=== PATIENT | female | born 1980 | race Caucasian/White ===

== ENCOUNTER 2016-11-28 19:13 | Emergency (ER) | payer OTHER ==
[2016-11-28 19:52] LABS: APPEARANCE,URINE CLEAR (CLEAR); COLOR,URINE YELLOW (YELLOW); OCCULT BLOOD,URINE NEGATIVE (NEGATIVE); UROBILINOGEN URINE 0.2 Eu (0.2-1.0)
--- NOTE | 2016-11-28 20:19 | ED Physician Documentation ---
Female Urogenital Problems - HISTORIAN Historian: patient - HPI Stated Complaint: burning with urination Chief Complaint: Female Urogenital Problems Severity: mild Further Comments: yes (Patient has recurrent UTI infections about every 6 months ,) - Vaginal Bleeding Sexual History: active - ROS CONST: none. denies: fever, chills GI/: nausea. denies: vomiting, diarrhea - PAST HX Past History: other (ACL, GERDs) Other History: other (asthma, depreesion HTN,) Surgeries/Procedures: BTL, cholecystectomy Allergies/Adverse Reactions: Allergies Allergy/AdvReac Type Severity Reaction Status Date / Time cephalexin monohydrate Allergy Rash Verified 11/28/16 19:53 [From Keflex] ciprofloxacin [From Cipro] AdvReac Unknown Hallucinati Verified 11/28/16 19:53 ons ciprofloxacin HCl AdvReac Unknown Hallucinati Verified 11/28/16 19:53 [From Cipro] ons aspirin AdvReac Rash Verified 11/28/16 19:53 famotidine [From Pepcid] AdvReac Rash Verified 11/28/16 19:53 nitrofurantoin AdvReac Rash Verified 11/28/16 19:53 [From Macrobid] nitrofurantoin AdvReac Rash Verified 11/28/16 19:53 macrocrystalline [From Macrobid] Penicillins AdvReac Rash Verified 11/28/16 19:53 Sulfa (Sulfonamide AdvReac Rash Verified 11/28/16 19:53 Antibiotics) Home Medications: Ambulatory Orders Medication Instructions Recorded Escitalopram Oxalate [Lexapro] 20 mg PO DAILY 11/28/16 Fentanyl [Fentanyl] 11/28/16 Omeprazole [Prilosec] 20 mg PO DAILY 11/28/16 Potassium Chloride [Klor-Con M20] 20 meq PO BID 11/28/16 Prochlorperazine Maleate 10 mg PO PRN 11/28/16 [Compazine] Sulfamethoxazole/Trimethoprim 1 each PO BID #14 tablet 11/28/16 [Bactrim DS] - SOCIAL HX Smoking History: quit less than 1 year (was 1/2 -1 ppd) Alcohol Use: none Drug Use: none - FAMILY HX Family History: other (DM) - VITAL SIGNS Vital Signs: Vital Signs Temp Pulse Resp BP Pulse Ox 98.3 F 85 16 117/77 100 11/28/16 19:49 11/28/16 19:49 11/28/16 19:49 11/28/16 19:49 11/28/16 19:49 - REVIEWED ASSESSMENTS Nursing Assessment Reviewed: Yes Vitals Reviewed: Yes ED Results Lab/Radiology - Lab Results Lab Results: Lab Results 11/28/16 19:25 Urine Color Yellow (YELLOW) Urine Appearance Clear (CLEAR) Urine pH 7.0 (5.0 - 8.0) Ur Specific [place] 1.020 (1.010-1.030) Urine Protein Negative mg/dL mg/dL (NEGATIVE) Urine Ketones Negative mg/dL mg/dL (NEGATIVE) Urine Occult Blood Negative (NEGATIVE) Urine Nitrite Negative (NEGATIVE) Urine Bilirubin Negative (NEGATIVE) Urine Urobilinogen 0.2 Eu Eu (0.2-1.0) Ur Leukocyte Esterase Trace H (NEGATIVE) Urine Glucose Negative mg/dL mg/dL (NEGATIVE) - Orders Orders: ED Orders Category Date Time Status UA MACRO DIP ONLY Routine Lab 11/28/16 19:25 Completed Female Urogenital Problems - EXAM General Appearance: no acute distress, alert Respiratory: no resp. distress, breath sounds nml. No: wheezes, rales, rhonchi CVS: reg rate & rhythm, heart sounds normal, equal pulses, murmur (grade 1-2/6 systolic) Abdomen: soft, non-tender (obese), no distention, nml bowel sounds, tenderness ( mild duprapubic) Neuro: oriented X3, mood/affect nml, cognition normal Discharge Clincal Impression: Cystitis Additional Instructions: Drink a lot of fluids. Take Bactrim twice a day as directed. Watch for any fever or chills. If you have any further problems to return the the ED or see your primary care provider. Home Medications: Ambulatory Orders Escitalopram Oxalate [Lexapro] 20 mg PO DAILY 11/28/16 Fentanyl [Fentanyl] 11/28/16 Omeprazole [Prilosec] 20 mg PO DAILY 11/28/16 Potassium Chloride [Klor-Con M20] 20 meq PO BID 11/28/16 Prochlorperazine Maleate [Compazine] 10 mg PO PRN 11/28/16 Sulfamethoxazole/Trimethoprim [Bactrim DS] 1 each PO BID #14 tablet 11/28/16 Condition: Stable Disposition: 01 HOME, SELF-CARE Decision to Admit: NO Date of Decison to Admit: 11/28/16 Decision Time: 20:32
[2016-11-28] MEDS ORDERED: SULFAMETHOXAZOLE/TRIMETHOPRIM 1 EACH TABLET PO ONE (20:29)
[2016-11-28] MEDS ORDERED: AZITHROMYCIN 250 MG TABLET PO ONE (20:57)
[2016-11-28 21:16] VITALS: BP 123/93
[2016-11-29] MEDS ORDERED: AZITHROMYCIN 250 MG TABLET PO SCH (09:00)
== END 2016-11-28 21:10 | disposition home or self-care (01) ==
LOC: ED 19:13
DX: N30.90 Cystitis, unspecified without hematuria (principal)
CPT/HCPCS: 81002; 87088; 87186; 99283

== ENCOUNTER 2017-01-23 14:28 | Emergency (ER) | payer OTHER ==
[2017-01-23] MEDS ORDERED: methylPREDNISolone SOD SUCC 125 MG/2 ML VIAL ONE (14:54)
--- NOTE | 2017-01-23 18:38 | ED Physician Documentation ---
Critical Care - HISTORIAN Historian: paramedics - [facility] Stated Complaint: pulmonary/cardiac arrest Chief Complaint: Code Blue Additional Information: 36 y/o white female who stated she could not breathe at home and collapsed. CPR begun imediately. 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) Further Comments: no - INITIAL FINDINGS BY MEDICS Mentation: Unresponsive Respirations: No Respirations Rhythm: asystole - PRE-HOSPITAL TREATMENT Oxygen: other (combitube) CRP/Thumper: Yes Defibrillated X: 1 IV Access: Yes (IO questionable function) IV Fluids: Yes (normal saline questionable amount) How Many Doses of Epinephrine?: 3 Vasopressin Given?: No How Many Doses of Atropine?: 0 Amiodorone Given?: No Lidocaine Given?: No - ROS CONST: no problems EYES/ENT: none CVS/RESP: shortness of breath MS/SKIN/LYMPH: none GI/: denies: abdominal pain, nausea, vomiting blood, black stools, painful urination NEURO/PSYCH: none - PAST HX Lung, Cardiac, DM: other (gerd, leukemia, depression, chronic pain, ) Allergies/Adverse Reactions: Allergies Allergy/AdvReac Type Severity Reaction Status Date / Time cephalexin monohydrate Allergy Rash Verified 11/28/16 19:53 [From Keflex] ciprofloxacin [From Cipro] AdvReac Unknown Hallucinati Verified 11/28/16 19:53 ons ciprofloxacin HCl AdvReac Unknown Hallucinati Verified 11/28/16 19:53 [From Cipro] ons aspirin AdvReac Rash Verified 11/28/16 19:53 famotidine [From Pepcid] AdvReac Rash Verified 11/28/16 19:53 nitrofurantoin AdvReac Rash Verified 11/28/16 19:53 [From Macrobid] nitrofurantoin AdvReac Rash Verified 11/28/16 19:53 macrocrystalline [From Macrobid] Penicillins AdvReac Rash Verified 11/28/16 19:53 Sulfa (Sulfonamide AdvReac Rash Verified 11/28/16 19:53 Antibiotics) Home Medications: Ambulatory Orders Medication Instructions Recorded Azithromycin [Zithromax] 250 mg PO DAILY #4 tablet 11/28/16 Escitalopram Oxalate [Lexapro] 20 mg PO DAILY 11/28/16 Fentanyl [Fentanyl] 1 patch TOP DIRECTED 11/28/16 Omeprazole [Prilosec] 20 mg PO DAILY 11/28/16 Potassium Chloride [Klor-Con M20] 20 meq PO BID 11/28/16 Prochlorperazine Maleate 10 mg PO PRN PRN 11/28/16 [Compazine] Sulfamethoxazole/Trimethoprim 1 each PO BID #14 tablet 11/28/16 [Bactrim DS] - SOCIAL HX Smoking History: cigarettes Alcohol Use: other (unknown) Drug Use: other (unknown) - FAMILY HX Family History: No - VITAL SIGNS Vital Signs: Vital Signs Temp Pulse Resp BP Pulse Ox 0 L 0 L 0/0 87 L 01/23/17 14:28 01/23/17 14:28 01/23/17 14:28 01/23/17 14:28 - REVIEWED ASSESSMENTS Nursing Assessment Reviewed: Yes Vitals Reviewed: Yes Procedures Time of Intubation: 14:15 Intubation Method: orotracheal Tube Size (cm): 6.0 (nasotracheal tube placed successfully in er) Medications: Succinylcholine Breath Sounds after Intubation: equal Intubation Complications: oral-unsuccessful attempt (secondary to laryngospasm) Post Intubation Xray: No Progress - Results/Orders Results/Orders: no testing done secondary to constraints of code - Progress Progress: Multiple attempts at intubating pt. unsuccessful secondary to resisitance. Pt being aerated with bag-valve mask during this time. Successful intubation after paralyzing agent (100 mg succinylchioline). Pt. in asystole on presentation. Went into PEA, bradycardia, asystole, v-fib, asystole and finally sinus tachycardia which was susatined with blood pressure and pulse. Given 7 doses of epi, 125 mg solu medrol, 1 liter NS, 1 mg atropine, 1/2 mg atropine, 2 amps of bicarb, 1 amp D50, epi drip at 1 mcg/kg/min, dopamine at 10 mcg/min. Pt. had spontaneous pulse, bp, skin warm, pink, dry on transfer via air ambulance to [facility]. See code summary for further details. ED Results Lab/Radiology - Lab Results Lab Results: none ordered - Radiology Radiology Impressions: none ordered - Orders Orders: ED Orders Category Date Time Status methylPREDNISolone SOD SUCC [Solu-MEDROL] Med 01/23/17 14:54 Discontinued 125 mg .ROUTE .STK-MED ONE Discharge Clincal Impression: Cardiopulmonary arrest Referrals: Primary Doctor,No [Primary Care Provider] - 2 Days Home Medications: Ambulatory Orders Azithromycin [Zithromax] 250 mg PO DAILY #4 tablet 11/28/16 Escitalopram Oxalate [Lexapro] 20 mg PO DAILY 11/28/16 Fentanyl [Fentanyl] 1 patch TOP DIRECTED 11/28/16 Omeprazole [Prilosec] 20 mg PO DAILY 11/28/16 Potassium Chloride [Klor-Con M20] 20 meq PO BID 11/28/16 Prochlorperazine Maleate [Compazine] 10 mg PO PRN PRN 11/28/16 Sulfamethoxazole/Trimethoprim [Bactrim DS] 1 each PO BID #14 tablet 11/28/16 Comments: Case discussed with Dr. Butcher fpr Dr. Johnston. Transferred witn bp of 90/50, hr of 130, O2 sat of 100% to [facility] via air transport. Condition: Stable Disposition: 02 XFER SHT-TRM HOSP Decision to Admit: NO Decision Time: 15:55
[2017-01-23] MEDS ORDERED: 0.9 % SODIUM CHLORIDE 1,000 ML IV ONE (19:04)
[2017-01-23] MEDS ORDERED: SODIUM BICARBONATE 50 MEQ/50 ML SYRINGE ONE (19:05)
[2017-01-23] MEDS ORDERED: EPINEPHrine 0.1 MG/ML DISP.SYRIN IVP ONE (19:07)
[2017-01-23] MEDS ORDERED: ATROPINE SULFATE 0.1 MG/ML DISP.SYRIN ONE (19:07)
[2017-01-23] MEDS ORDERED: PHARMACY KEY 1 EACH EACH MC ONE (19:10)
[2017-01-23] MEDS ORDERED: DOPAMINE HCL/D5W 400 MG/250 ML BAG IV ONE (19:12)
[2017-01-23] MEDS ORDERED: 0.9 % SODIUM CHLORIDE 250 ML IV ONE (19:13)
[2017-01-23 20:37] VITALS: BP 78/37
== END 2017-01-23 18:36 | disposition short-term general hospital (02) ==
LOC: ED 14:28
DX: I46.9 Cardiac arrest, cause unspecified (principal)
CPT/HCPCS: J0171; J0461; J1265; J2930; J7030; J7050; 96365; 96367; 96375; 96376; 99285; 99291; 99292; S1016